=== PATIENT | female | born 1950 | race Caucasian/White ===

== ENCOUNTER 2019-04-26 06:33 | Day surgery (SDC) | payer MEDICARE ==
[~2019-04-26] VITALS: Ht 170.2 cm; Wt 58.8 kg
[2019-04-26] VITALS (14 sets, daily range): BP systolic 121–148; BP diastolic 60–90
[2019-04-26] MEDS ORDERED: normal saline 1000ml 1,000 ML IV PRN (06:50)
[2019-04-26] MEDS ORDERED: ACET-814 PO (07:05)
[2019-04-26] MEDS ORDERED: TRAM50TA2 PO (07:05)
[2019-04-26] MEDS ORDERED: ONDA8TAB12 PO (07:05)
[2019-04-26] MEDS ORDERED: ALLO300T2 PO (07:05)
[2019-04-26] MEDS ORDERED: BUPR150T8 PO (07:05)
[2019-04-26] MEDS ORDERED: FAMO40TA73 PO (07:05)
[2019-04-26] MEDS ORDERED: OMEP40CA37 PO (07:05)
[2019-04-26 07:33] LABS: BASOPHILS # (AUTO) 0.1 X10'3 (0-0.2); BASOPHILS % (AUTO) 1.3 % (0-1); EOSINOPHILS # (AUTO) 0.1 X10'3 (0-0.9); EOSINOPHILS % (AUTO) 1.3 % (0-6); HEMATOCRIT 34.7 % (35.0-45.0); HEMOGLOBIN 11.5 g/dl (12.0-16.0); LYMPHOCYTES % (AUTO) 14.5 % (21-51); MEAN CORPUSCULAR HEMOGLOBIN 29.4 PG (27.0-31.0); MEAN CORPUSCULAR HGB CONC 33.1 g/dL (33.0-36.5); MEAN CORPUSCULAR VOLUME 88.9 FL (78-98); MEAN PLATELET VOLUME 7.3 FL (7.4-10.4); MONOCYTES # (AUTO) 0.7 X10'3 (0-0.9); MONOCYTES % (AUTO) 10.3 % (2-12); NEUTROPHILS # (AUTO) 4.9 X10'3 (1.8-7.7); NEUTROPHILS % (AUTO) 72.6 % (42-75); PLATELET COUNT 361 X10'3 (140-440); RED CELL DISTRIBUTION WIDTH 12.7 % (11.5-14.5); WHITE BLOOD COUNT 6.7 X10'3 (4.5-11.0)
[2019-04-26 07:41] LABS: ALBUMIN 3.2 G/DL (3.4-5.0); ANION GAP 10 (8-16); BLOOD UREA NITROGEN 10 MG/DL (7-18); BUN/CREATININE RATIO 12.8 (6.6-38.0); CALCIUM 9.5 MG/DL (8.5-10.1); CHLORIDE 104 MMOL/L (99-107); CREATININE 0.78 MG/DL (0.40-0.90); GLUCOSE 97 MG/DL (70-104); SODIUM 139 MMOL/L (135-145); TOTAL CARBON DIOXIDE 24.8 MMOL/L (24-32); eGFR 73 ML/MIN
[2019-04-26] MEDS ORDERED: midazolam 2 mg/2 ml injection IV PRN (08:20)
[2019-04-26] MEDS ORDERED: fentaNYL/PF 50MCG/1 ML 2ML syringe IV PRN (08:20)
[2019-04-26] MEDS ORDERED: heparin sodium, porcine/PF 100unit/ml 5ML syringe ONE (08:24)
[2019-04-26] MEDS ORDERED: midazolam 2 mg/2 ml injection ONE ×2 (08:24→09:46)
[2019-04-26] MEDS ORDERED: fentaNYL/PF 50MCG/1 ML 2ML syringe ONE ×2 (08:25→09:46)
[2019-04-26] MEDS ORDERED: ondansetron/PF 4mg/2ml inj ONE (09:34)
[2019-04-26] MEDS ORDERED: gelatin sponge, absorbable (Gelfoam 12-7MM) sponge TP ONE (10:10)
== END 2019-04-26 11:45 | disposition home or self-care (01) ==
LOC: SSTAY O 06:33
PROVIDERS: ATTEND Radiology Vascular & Interventional Radiology
DX: C85.13 Unspecified B-cell lymphoma, intra-abdominal lymph nodes (principal); K62.89 Other specified diseases of anus and rectum; Z88.6 Allergy status to analgesic agent; Z79.899 Other long term (current) drug therapy
CPT/HCPCS: 36415; 36561; 49180; 76937; 77001; 77012; 80048; 85025; 85610; 88184; 88185; 99152; 99153; C1788; C1894; J1642; J2250; J2405; J3010; J7030; 88305; A6213